=== PATIENT | female | born 1950 | race Native Hawaiian/Other Pacific Islander ===

== ENCOUNTER 2016-06-05 19:27 | Inpatient (IN) | payer OTHER ==
[~2016-06-05] VITALS: Ht 165.1 cm; Wt 57.2 kg
[2016-06-05 19:39] VITALS: BP 88/62; TEMP 98
[2016-06-05] MEDS ORDERED: LIPITOR40 MG PO (19:41)
[2016-06-05] MEDS ORDERED: CELEXA40 MG PO (19:41)
[2016-06-05] MEDS ORDERED: IMITREX100 MG PO (19:41)
[2016-06-05] MEDS ORDERED: TOLT4CAP2 PO (19:42)
[2016-06-05] MEDS ORDERED: NAPROSYN500 MG OR (19:42)
[2016-06-05] MEDS ORDERED: LISITAB PO (19:42)
[2016-06-05] MEDS ORDERED: AMLO2.5T PO (19:42)
[2016-06-05] MEDS ORDERED: CETI10TA PO (19:43)
[2016-06-05] MEDS ORDERED: ALPR0.5T24 PO (19:43)
[2016-06-05] MEDS ORDERED: NAMENDA XR28 MG OR (19:44)
[2016-06-05] MEDS ORDERED: AMBIEN5 MG PO (19:44)
[2016-06-05 20:11] LABS: PLATELET COUNT 202 K/uL (152-353)
[2016-06-05 20:16] LABS: POTASSIUM 3.6 mmol/L (3.6-5.2)
[2016-06-06] VITALS (28 sets, daily range): BP systolic 83–123; BP diastolic 45–77; TEMP 97.5–99; Ht 165.1 cm; Wt 57.2 kg
[2016-06-06 06:59] LABS: PLATELET COUNT 148 K/uL (152-353)
[2016-06-06 07:21] LABS: POTASSIUM 2.9 mmol/L (3.6-5.2)
[2016-06-06] MEDS ORDERED: LORTAB 7.5-3251 TAB PO (12:19)
[2016-06-06 18:39] LABS: PLATELET COUNT 76 K/uL (152-353)
[2016-06-06 19:00] LABS: POTASSIUM 2.6 mmol/L (3.6-5.2)
[2016-06-07] VITALS (68 sets, daily range): BP systolic 79–138; BP diastolic 51–77; TEMP 98–99
[2016-06-07 09:03] LABS: POTASSIUM 4.1 mmol/L (3.6-5.2)
[2016-06-07 09:04] LABS: PLATELET COUNT 73 K/uL (152-353)
[2016-06-08] VITALS (41 sets, daily range): BP systolic 98–180; BP diastolic 51–98; TEMP 97–100
[2016-06-08 06:32] LABS: PLATELET COUNT 50 K/uL (152-353)
[2016-06-08 06:51] LABS: POTASSIUM 4.2 mmol/L (3.6-5.2)
[2016-06-08 15:23] LABS: PARTIAL THROMBOPLASTIN TIME 63.6 SECONDS (24.5-33.6)
[2016-06-08 17:02] LABS: POTASSIUM 3.7 mmol/L (3.6-5.2)
[2016-06-08 22:20] LABS: PLATELET COUNT 55 K/uL (152-353)
[2016-06-09] VITALS (47 sets, daily range): BP systolic 116–152; BP diastolic 52–75; TEMP 98.1–100
[2016-06-09 06:41] LABS: POTASSIUM 4.1 mmol/L (3.6-5.2)
[2016-06-09 06:51] LABS: PLATELET COUNT 45 K/uL (152-353)
[2016-06-10] VITALS (46 sets, daily range): BP systolic 106–158; BP diastolic 54–105; TEMP 98.1–100.3
[2016-06-10 06:32] LABS: PLATELET COUNT 31 K/uL (152-353)
[2016-06-10 10:15] LABS: PARTIAL THROMBOPLASTIN TIME 36.9 SECONDS (24.5-33.6)
[2016-06-11] VITALS (23 sets, daily range): BP systolic 80–179; BP diastolic 7–97; TEMP 98.1–99.3
[2016-06-11 05:51] LABS: POTASSIUM 4.2 mmol/L (3.6-5.2)
[2016-06-11 06:20] LABS: PLATELET COUNT 171 K/uL (152-353)
[2016-06-12] VITALS (21 sets, daily range): BP systolic 143–199; BP diastolic 70–88; TEMP 99–100.3
[2016-06-12 06:38] LABS: PLATELET COUNT 96 K/uL (152-353)
[2016-06-12 06:41] LABS: POTASSIUM 3.6 mmol/L (3.6-5.2)
[2016-06-12 16:30] LABS: PARTIAL THROMBOPLASTIN TIME 32.5 SECONDS (24.5-33.6)
[2016-06-12 18:25] LABS: POTASSIUM 3.5 mmol/L (3.6-5.2)
[2016-06-13] VITALS (24 sets, daily range): BP systolic 119–196; BP diastolic 67–97; TEMP 98.1–101.1
[2016-06-13 06:44] LABS: PLATELET COUNT 69 K/uL (152-353)
[2016-06-13 07:09] LABS: POTASSIUM 3.7 mmol/L (3.6-5.2)
[2016-06-14] VITALS (13 sets, daily range): BP systolic 127–172; BP diastolic 61–84; TEMP 98.7–99.1
[2016-06-14 09:47] LABS: PLATELET COUNT 83 K/uL (152-353)
[2016-06-14 10:52] LABS: POTASSIUM 4.1 mmol/L (3.6-5.2)
== END 2016-06-14 16:05 | disposition short-term general hospital (02) | DRG 329 ==
LOC: ED 19:27 → MED/SURG 06-06 02:10 → ICU 06-06 02:10 → ED 06-06 02:10 → MED/SURG 06-06 12:55 → ICU 06-11 08:45
PROVIDERS: Emergency Medicine; Student in an Organized Health Care Education/Training Program; ADMIT Specialist
PROC: 0DTK0ZZ Resection of Ascending Colon, Open Approach (ICD-10-PCS; principal; 2016-06-06)
PROC: 0DT80ZZ Resection of Small Intestine, Open Approach (ICD-10-PCS; 2016-06-06)
PROC: 02HV33Z Insertion of Infusion Device into Superior Vena Cava, Percutaneous Approach (ICD-10-PCS; 2016-06-06)
PROC: 0DTA0ZZ Resection of Jejunum, Open Approach (ICD-10-PCS; 2016-06-07)
PROC: 5A1955Z Respiratory Ventilation, Greater than 96 Consecutive Hours (ICD-10-PCS; 2016-06-07)
PROC: 0BH17EZ Insertion of Endotracheal Airway into Trachea, Via Natural or Artificial Opening (ICD-10-PCS; 2016-06-07)
PROC: 30233N1 Transfusion of Nonautologous Red Blood Cells into Peripheral Vein, Percutaneous Approach (ICD-10-PCS; 2016-06-07)
PROC: 30243R1 Transfusion of Nonautologous Platelets into Central Vein, Percutaneous Approach (ICD-10-PCS; 2016-06-07)
PROC: 30243R1 Transfusion of Nonautologous Platelets into Central Vein, Percutaneous Approach (ICD-10-PCS; 2016-06-10)
PROC: 05HN33Z Insertion of Infusion Device into Left Internal Jugular Vein, Percutaneous Approach (ICD-10-PCS; 2016-06-11)
PROC: B544ZZA Ultrasonography of Left Jugular Veins, Guidance (ICD-10-PCS; 2016-06-11)
PROC: 5A1D00Z (ICD-10-PCS; 2016-06-11)
PROC: 30233N1 Transfusion of Nonautologous Red Blood Cells into Peripheral Vein, Percutaneous Approach (ICD-10-PCS; 2016-06-13)
PROC: 30233N1 Transfusion of Nonautologous Red Blood Cells into Peripheral Vein, Percutaneous Approach (ICD-10-PCS; 2016-06-14)
DX: K55.019 Acute (reversible) ischemia of small intestine, extent unspecified (principal); K65.1 Peritoneal abscess; J96.00 Acute respiratory failure, unspecified whether with hypoxia or hypercapnia; N17.0 Acute kidney failure with tubular necrosis; A41.89 Other specified sepsis; I12.0 Hypertensive chronic kidney disease with stage 5 chronic kidney disease or end stage renal disease; N18.5 Chronic kidney disease, stage 5; K55.039 Acute (reversible) ischemia of large intestine, extent unspecified; B37.3 Candidiasis of vulva and vagina; R74.0 Nonspecific elevation of levels of transaminase and lactic acid dehydrogenase [LDH]; E83.42 Hypomagnesemia; E83.51 Hypocalcemia; D69.6 Thrombocytopenia, unspecified; E88.09 Other disorders of plasma-protein metabolism, not elsewhere classified; I51.7 Cardiomegaly; D64.89 Other specified anemias; D72.828 Other elevated white blood cell count
CPT/HCPCS: 36415; 36430; 36591; 36600; 43754; 51702; 80048; 80053; 80307; 81000; 82140; 82150; 82550; 82553; 82565; 82570; 82805; 82947; 82962; 83605; 83690; 83735; 83880; 84100; 84295; 84300; 84439; 84443; 84478; 84484; 85007; 85027; 85362; 85379; 85384; 85610; 85730; 86022; 86140; 86850; 86900; 86901; 86922; 87040; 87088; 93005; 94002; 94003; 94760; 96361; 96365; 96366; 96372; 96375; 99284; C1751; C1768; G0479; J0744; J1170; J1644; J1720; J1940; J1956; J2001; J2060; J2250; J2270; J2405; J2550; J2704; J3010; J3411; J3475; J3490; J7060; P9016; P9035; P9047

== ENCOUNTER 2016-06-14 16:05 | Inpatient (IN) | payer OTHER ==
[~2016-06-14] VITALS: Ht 165.1 cm; Wt 57.2 kg
[~2016-06-14 16:05] MED LIST: ALPR0.5T24 PO; AMBIEN5 MG PO; AMLO2.5T PO; CELEXA40 MG PO; CETI10TA PO; IMITREX100 MG PO; LIPITOR40 MG PO; LISITAB PO; LORTAB 7.5-3251 TAB PO; NAMENDA XR28 MG OR; NAPROSYN500 MG OR; TOLT4CAP2 PO
[2016-06-14 23:25] VITALS: BP 157/63; TEMP 98.2; Ht 165.1 cm; Wt 57.2 kg
--- NOTE | 2016-06-15 00:11 | NUR ---
06/14/161929 RECEIVED REPORT FROM DAVID MCKEON RN PT MOVED TO ROOM 1119 UND[facility].SPOKE WITH ДМИТРИЙ FROM [facility] SAID TO CALL IF WE NEEDED HER FOR ANY FURTHER QUESTIONS.CC 06/14/162124 PT ASSESSED DOESNOT RESPOND TO STIMULI,BREATHING LABORED.SON AND PT SISTER PRESENT IN ROOM AT THIS TIME.PT HAS NG TUBE PRESENT DRAINING SMALL AMOUNT SECRETIONS GREEN IN COLOR.ALSO PT HAS 02 2LPM.PT HAS A PICC LINE IN HER RIGHT NECK FOR MEDICATIONS.ALSO LOCATED IN LEFT SIDE OF NECK IS A LINE FOR DIALYSIS.CC
--- NOTE | 2016-06-15 03:11 | NUR ---
06/14/16 2330 PT RESTING IN BED WITH LABORED BREATHING EYES OPEN,PT SPOKEN TO NO STIMULI NOTED.CC 06/14/16 2350 NO CHANGE IN CONDITION.CC 06/15/16 0025 NO CHANGE IN STAUS OF PATIENT.CC 06/15/16 0105TURNED AND REPOSTIONED LABORED BREATHING CONTINUED NO CHANGE IN CONDITION.CC 06/15/16 0255 REPOSTIONED AND TURNED NO RESPONSE OF PATIENT EYES SLIGHTY OPEN.CC
--- NOTE | 2016-06-15 05:08 | NUR ---
06/15/16 0450 PT TURNED AND REPOSTIONED NO CHANGE IN PATIENT CONDITION.TEMP 98.2 AX.140ML OUT NG TUBE GREEN IN COLOR.100ML OUT IN WALL SUCTION TO ABDOMEN REDDISH IN COLOR.CC
--- NOTE | 2016-06-15 06:17 | NUR ---
06/15/16 0615 PT REMAINS UNRESPONSIVE NO REACTION TO STIMULI.PT REPOSTIONED FOR COMFORT.CC
[2016-06-15 08:53] VITALS: BP 151/66; TEMP 100.2
--- NOTE | 2016-06-15 10:00 | NUR ---
TEMP RECHECKED. 99.0 AT THIS TIME. TEMP IN ROOM SET TO COOLER. PT TUNRED AND RESPOSTIONED AT THIS TIME.
--- NOTE | 2016-06-15 13:01 | NUR ---
1130- TALKED WITH ДМИТРИЙ WITT RN WITH [facility]. INFORMED OF TEMP BACK UP TO 101.7. ORDERED TO CHANGE ORDER FOR TYLENOL EVERY 4 HOURS. FAMILY STATING PT IS GRUNTING. REPOSTIONED PT AND MEDS GIVEN ORDERED.
--- NOTE | 2016-06-15 15:30 | NUR ---
HOSPICE NURSE AT AT THIS TIME.
[2016-06-15 20:04] VITALS: BP 143/68; TEMP 99.3
--- NOTE | 2016-06-16 00:34 | NUR ---
06/15/16 2205 PT TURNED AND REPOSTIONED PER PCT.CC 06/15/16 2320 TEMP 100.2AX.PT TURNED AND REPOSTIONED MOUTH CLEANED.CC
--- NOTE | 2016-06-16 01:13 | NUR ---
06/16/16 0105 PT RESTING WITH EYES PARTIALLY OPEN DOESNOT RESPOND TO STIMULI.CC
--- NOTE | 2016-06-16 02:00 | NUR ---
06/16/16 0145 RESTING WITH EYES PARTIALLY CLOSED SHALLOW BREATHING SLIGHTY LABORED NO FAMILY PRESENT IN ROOM WITH FAMILY DURING THE NIGHT.CC
--- NOTE | 2016-06-16 03:49 | NUR ---
06/16/16 0310 PT RESTING WITH EYES PARTIALLY OPEN.TURNED AND REPOSTIONED TO RIGHT SIDE.CLEANED MOUTH AND APPLIED VASELINE.CC
--- NOTE | 2016-06-16 04:13 | NUR ---
06/16/16 1800 RESTING NAD NOTED NO CHANGE IN CONDITION.CC
--- NOTE | 2016-06-16 05:27 | NUR ---
06/16/16 0520 TYLENOL 650MG PER RECTUM GIVEN FOR TEMP 100.4 AX.TURNED ABD REPOSTIONED.NG TUBE OUTPUT 450ML GREEN DRAINAGE.CC
[2016-06-16 20:00] VITALS: BP 69/36; TEMP 100.7
--- NOTE | 2016-06-17 00:30 | NUR ---
06/16/[address] [place] [address] CONTACTED ABOUT PT'S STATUS. NURSE IS BEING SENT TO PRONOUNCE PT.
--- NOTE | 2016-06-17 00:38 | NUR ---
PT'S SON IS NOW AT BEDSIDE.
--- NOTE | 2016-06-17 02:15 | NUR ---
0208CARE TURNED OVER TO [facility].
--- NOTE | 2016-06-17 04:45 | NUR ---
06/16/16 AT 1938INCISION SITE(ABD WOUND) CONNECTED TO SUCTION WITH NO PROBLEMS NOTED TO SITE. NG TUBE INTACT TO R NOSTRIL AND CONNECTED TO SUCTION WITH BLACKISH GREENISH DRAINAGE NOTED, SECURED TO NOSE WITH TAPE. EMERSON PATENT DRAINING TO BEDSIDE WITH SMALL AMOUNT OF DARK CONCENTRATED YELLOW URINE NOTED. RADIAL AND PEDAL PULSES INTACT BUT NOTE THAT THEY ARE WEAK, PT DOES NOT RESPOND TO STIMULI. CENTRAL LINE INTACT TO R SUBCLAVIAN AND CENTRAL LINE INTACT TO L JUGULAR WITH NO PROBLEMS NOTED TO EITHER SITE. PT REPOSITIONED TO HER BACK WITH FEET ELEVATED ON PILLOW. WILL MONITOR CLOSELY. PT IS COMFORT CARE ONLY, NOTE MANAGEMENT SPECIALIST NOTIFIED BY PT SOFTWARE DEVELOPER INTERN ABOUT PT'S VITALS (B/P LOW, RESP RATE 30-34 SHALLOW, TEMP 100.7). ALSO NOTE SHORT PERIODS OF APNEA LASTING APPROX 3-5 SECONDS. WILL MONITOR CLOSELY.
--- NOTE | 2016-06-17 04:59 | NUR ---
06/16/16 AT 2320ASHSHIRA WITT RN WITH [facility] HAS ARRIVED TO ASSESS AND PRONOUNCE PT. NO APICAL PULSE, BREATH SOUNDS, OR MOVEMENT OF CHEST NOTED. CENTRAL LINE TO R SUBCLAVIAN AND TO L JUGULAR REMOVED BY EDUAR AND COVERED WITH GAUZE. NG TUBE AND EMERSON CATH REMOVED. PHARMACY TECHNOLOGIST ASSISTED EDUAR.
--- NOTE | 2016-06-17 05:03 | NUR ---
06/17/16 AT 0145WOUND VAC TUBING REMOVED FROM INCISION SITE TO ABD, COVERED WITH ABD PAD AND SECURED WITH TAPE.
--- NOTE | 2016-06-17 05:04 | NUR ---
06/16/16 AT 2256PT FOUND LAYING IN BED WITH EYES CLOSED, BIOMEDICAL ENGINEERING INTERNSHIP NOTES PT IS NOT REPONSIVE TO STIMULI. NO RESPIRATIONS NOTED AND NO APICAL PULSE NOTED. CHARGE NURSE Nikita ARZOLA RN NOTIFIED.
--- NOTE | 2016-06-17 05:07 | NUR ---
06/16/16 AT 2348ARICO WITT RN WITH [facility] PRONOUNCED PT AT THIS TIME.
--- NOTE | 2016-06-17 05:08 | NUR ---
06/16/16 2204PT TURNED AND REPOSITIONED BY PT SPECIAL LOAN OFFICER AT THIS TIME. FEET ELEVATED OFF OF BED ON PILLOW.
== END 2016-06-16 23:48 | disposition expired | DRG 395 ==
LOC: MED/SURG 16:05
PROVIDERS: ADMIT Internal Medicine
DX: K55.019 Acute (reversible) ischemia of small intestine, extent unspecified (principal)
CPT/HCPCS: 94760; J2060